=== PATIENT | male | born 1965 | race Two or more races ===

== ENCOUNTER 2019-04-30 23:26 | Emergency (ER) | payer SELFPAY ==
[~2019-04-30] VITALS: Ht 180.3 cm; Wt 80.0 kg
[2019-05-01 00:21] LABS: BASOPHILS # (AUTO) 0.02 x10^3/uL (0-0.1); BASOPHILS % (AUTO) 0 % (0-1); EOSINOPHILS % (AUTO) 0 % (1-7); LYMPHOCYTES # (AUTO) 0.48 x10^3/uL (1-3.4); LYMPHOCYTES % (AUTO) 5 % (22-44); MD NO; MEAN CORPUSCULAR HEMOGLOBIN 28.7 pg (27.5-34.5); MEAN CORPUSCULAR VOLUME 86.9 fL (81-97); MEAN PLATELET VOLUME 6.9 fL (7.4-10.4); MONOCYTES # (AUTO) 0.21 x10^3/uL (0.2-0.8); MONOCYTES % (AUTO) 2 % (2-9); NEUTROPHILS # (AUTO) 8.26 x10^3/uL (1.8-6.8); NEUTROPHILS % (AUTO) 92 % (42-75); PLATELET COUNT 275 x10^3/uL (130-400); RED BLOOD COUNT 5.59 x10^6/uL (4.38-5.82); RED CELL DISTRIBUTION WIDTH 14.5 % (9.4-14.8)
[2019-05-01 00:31] LABS: INTERNATIONAL NORMALIZED RATIO 1.1 (0.93-1.1); PROTHROMBIN TIME 11.5 Seconds (9.6-11.5)
[2019-05-01 00:33] LABS: ALANINE AMINOTRANSFERASE 28 U/L (12-78); ANION GAP 10 mmol/L (5-15); CALCIUM 8.3 mg/dL (8.5-10.1); CHLORIDE 107 mmol/L (98-107); CREATININE 1.31 mg/dL (0.7-1.3)
[2019-05-01 00:39] LABS: ALKALINE PHOSPHATASE 78 U/L (45-117); BILIRUBIN,TOTAL 0.7 mg/dL (0.2-1.0); TOTAL PROTEIN 8.1 g/dL (6.4-8.2); TROPONIN I < 0.015 ng/mL (0.000-0.045)
[2019-05-01 00:42] VITALS: BP 123/83
--- NOTE | 2019-05-01 00:53 | NUR ---
TASK RN: PT RESTING IN GURNEY W/ EYES CLOSED, EVEN/REGULAR RESPIRATIONS NOTED. PT EASILY ARROUSABLE TO VOICE. PT/FRIENDS UPDATED TO POC (RECHECK) AND DEMONSTRATE UNDERSTANDING. AWAITING DISPO
== END 2019-05-01 02:01 | disposition home or self-care (01) ==
LOC: ED 05-01 01:40
DX: K92.1 Melena (principal)
CPT/HCPCS: 36415; 80053; 83690; 84484; 85025; 85610; 86850; 86900; 93005; 99284